=== PATIENT | female | born 1955 | race Caucasian/White ===

== ENCOUNTER → 2023-06-02 | Outpatient (CLI) | payer MEDICARE ==
[2023-06-02 13:00] LABS: BASO % 0.4 % (0.0-1.0); EOS # 0.1 10*3/uL (0.0-0.4); EOS % 0.4 % (1.0-4.0); HEMATOCRIT 35.6 % (37.0-47.0); LYMPH # 1.7 10*3/uL (1.3-4.4); LYMPH % 14.6 % (27.0-41.0); MEAN CELL VOLUME 78.9 fl (81.0-99.0); MEAN CORPUSCULAR HGB 24.8 pg (27.0-31.0); MEAN CORPUSCULAR HGB CONC 31.5 g/dl (33.0-37.0); MONO % 8.6 % (3.0-9.0); NEUT # 8.5 10*3/uL (2.3-7.9); NEUT % 75.4 % (47.0-73.0); PLATELET COUNT AUTOMATED 404 10*3/uL (130-400); RED BLOOD COUNT 4.51 10*6/uL (4.10-5.10); RED CELL DISTRI WIDTH 15.9 % (0-14.5); WHITE BLOOD COUNT 11.3 10*3/uL (4.8-10.8)
[2023-06-02 13:24] LABS: URIC ACID 4.9 mg/dL (3.1-7.8)
[2023-06-02 14:50] LABS: BF MONOCYTES 13 %; BF NEUTROPHILS 87 %
[2023-06-02 14:53] LABS: BF MONOCYTES 3 %; BF NEUTROPHILS 97 %
[2023-06-03 06:09] LABS: HBSAG Negative (Negative); HEP B CORE AB, IGM Negative (Negative); HEPATITIS C ANTIBODY Non Reactive (Non Reactive)
[2023-06-03 10:08] LABS: ANTI-RNP ANTIBODIES 0.2 AI (0.0-0.9)
[2023-06-03 12:08] LABS: CCP ANTIBODIES IGG/IGA 5 units (0-19)
[2023-06-03 13:07] LABS: ACID FAST SPEC PROCESSING Direct Inoculation (.)
[2023-06-03 13:07] LABS: ACID FAST SPEC PROCESSING Direct Inoculation (.)
[2023-06-04 16:08] LABS: DVVTMIXRFX CHG (NP); HEXAGONAL PHASE PHOSPHOLIPID 9 sec (0-11); LUPUS DRVVT 54.7 sec (0.0-47.0); PTT-LA 47.8 sec (0.0-43.5); PTT-LA MIX 47.3 sec (0.0-40.5)
[2023-06-04 17:07] LABS: LUPUS REFLEX INTERPRETATION Comment: (.)
[2023-06-10 17:07] LABS: HLA-B27 ANTIGEN Negative (.)
== END | disposition home or self-care (01) ==
LOC: LAB 12:00
PROVIDERS: ATTEND Orthopaedic Surgery
DX: M25.462 Effusion, left knee (principal); M25.461 Effusion, right knee; B16.0 Acute hepatitis B with delta-agent with hepatic coma